=== PATIENT | female | born 1975 | race Caucasian/White ===

== ENCOUNTER 2017-03-07 07:10 | Day surgery (SDC) | payer BC ==
--- NOTE | ~2017-03-07 | EGD ---
EGD REPORT [facility] [address] [address] NAME: ALONDRA CARRILLO : [birth year] STATUS : REG [facility]#: [id number] AGE: 42 ADM/REG DATE : 03/07/17 MR#: [id number] REPORT SERV DATE: 03/07/17 DICTATED BY: URBAN ALMEIDA DATE: 03/07/17 REPORT STATUS : Draft TRANSCRIBED BY: [facility] DATE: 03/07/17 Endoscopy Center Patient Name: Alondra Carrillo Date of : 1975 Attending MD: URBAN ALMEIDA MD Procedure Date No Time: 03/07/2017 Procedure: Colonoscopy Indications: Iron deficiency anemia Referring MD: RIZWANA VILLEGAS Medicines: as per anesthesia Complications: No immediate complications. Procedure: Pre-Anesthesia Assessment: - ASA Grade Assessment: II - A patient with mild systemic disease. After I obtained informed consent, the scope was passed under direct vision. Throughout the procedure, the patient's blood pressure, pulse, and oxygen saturations were monitored continuously. The PCF [id number] was introduced through the anus and advanced to the cecum, identified by appendiceal orifice and ileocecal valve. The colonoscopy was somewhat difficult due to significant looping and a tortuous colon. The patient tolerated the procedure. The quality of the bowel preparation was adequate to identify polyps. Findings: The perianal and digital rectal examinations were normal. Internal hemorrhoids were found during endoscopy and were mild. Impression: - Internal hemorrhoids. Recommendation: - Repeat colonoscopy in 5 years for surveillance. Procedure Code(s): --- Professional --- 86811, Colonoscopy, flexible, proximal to splenic flexure; diagnostic, with or without collection of specimen(s) by brushing or washing, with or without colon decompression (separate procedure) Diagnosis Code(s): --- Professional --- K64.8, Other hemorrhoids D50.9, Iron deficiency anemia, unspecified CPT copyright 2013 [employer]. All rights reserved. EGD REPORT [facility] [address] [address] NAME: ALONDRA CARRILLO : [birth year] STATUS : REG [facility] [place] PAT#: [id number] AGE: 42 ADM/REG DATE : 03/07/17 MR#: [id number] REPORT SERV DATE: 03/07/17 DICTATED BY: URBAN ALMEIDA. DATE: 03/07/17 REPORT STATUS : Draft TRANSCRIBED BY: [employer] DATE: 03/07/17 The codes documented in this report are preliminary and upon relief mate review may be revised to meet current compliance requirements. URBAN ALMEIDA MD 03/07/2017 10:20 AM This report has been signed electronically. Number of Addenda: 0 Note Initiated On: 03/07/2017 9:28 AM Scope Withdrawal Time 0 hours 6 minutes 25 seconds [address] [id number]
--- NOTE | ~2017-03-07 | EGD ---
EGD REPORT [facility] [address] [address] NAME: ALONDRA CARRILLO : [birth year] STATUS : REG [facility]#: [id number] AGE: 42 ADM/REG DATE : 03/07/17 MR#: [id number] REPORT SERV DATE: 03/07/17 DICTATED BY: URBAN ALMEIDA DATE: 03/07/17 REPORT STATUS : Draft TRANSCRIBED BY: [facility] DATE: 03/07/17 Endoscopy Center Patient Name: Alondra Carrillo Date of : 1975 Attending MD: URBAN ALMEIDA MD Procedure Date No Time: 03/07/2017 Procedure: Upper GI endoscopy Indications: Iron deficiency anemia Referring MD: RIZWANA VILLEGAS Medicines: as per anesthesia Complications: No immediate complications. Procedure: Pre-Anesthesia Assessment: - ASA Grade Assessment: II - A patient with mild systemic disease. - ASA Grade Assessment: II - A patient with mild systemic disease. After obtaining informed consent, the endoscope was passed under direct vision. Throughout the procedure, the patient's blood pressure, pulse, and oxygen saturations were monitored continuously. The GIF H190 [id number] was introduced through the mouth, and advanced to the third part of duodenum. The upper GI endoscopy was accomplished without difficulty. The patient tolerated the procedure well. Findings: The examined esophagus was normal. The entire examined stomach was normal. The cardia and gastric fundus were normal on retroflexion. The examined duodenum was normal. Biopsies were taken with a cold forceps for histology. Impression: - Normal esophagus. - Normal stomach. - Normal examined duodenum. Biopsied. Recommendation: - Await pathology results. Procedure Code(s): --- Professional --- 57677, Esophagogastroduodenoscopy, flexible, transoral; with biopsy, single or multiple Diagnosis Code(s): --- Professional --- D50.9, Iron deficiency anemia, unspecified EGD REPORT [address] [address] NAME: ALONDRA CARRILLO : [birth year] [place]US : [place] [facility] [place]#: [id number] AGE: 42 ADM/REG DATE : 03/07/17 MR#: [id number] REPORT SERV DATE: 03/07/17 DICTATED BY: URBAN ALMEIDA. DATE: 03/07/17 REPORT STATUS : Draft TRANSCRIBED BY: [employer] DATE: 03/07/17 CPT copyright 2013 [employer]. All rights reserved. The codes documented in this report are preliminary and upon digital sales representative review may be revised to meet current compliance requirements. URBAN ALMEIDA MD 03/07/2017 9:49 AM This report has been signed electronically. Number of Addenda: 0 Note Initiated On: 03/07/2017 9:29 AM Scope Withdrawal Time 0 hours 0 minutes 0 seconds
[~2017-03-07 07:10] MED LIST: ADVIL PO; ALLERGY SHOTS; BEN25 PO; EXCEDRIN; Excedrin PO; MIRALAX POWDER1 PKT PO; NEXIUM20 M1 PO; NEXIUM40 PO; PROBIOTIC PO; VITAMIN D1000 UNI1 PO; ZYRTEC-D ALG PO
== END 2017-03-07 23:59 | disposition home health service (06) ==
LOC: DMU 07:10
PROVIDERS: Internal Medicine Gastroenterology
PROC: 0DB98ZX Excision of Duodenum, Via Natural or Artificial Opening Endoscopic, Diagnostic (ICD-10-PCS; principal; 2017-03-07 09:00)
PROC: 0DJD8ZZ Inspection of Lower Intestinal Tract, Via Natural or Artificial Opening Endoscopic (ICD-10-PCS; 2017-03-07 09:00)
DX: D50.9 Iron deficiency anemia, unspecified (principal); K64.8 Other hemorrhoids; K21.9 Gastro-esophageal reflux disease without esophagitis; Z90.710 Acquired absence of both cervix and uterus; Z98.890 Other specified postprocedural states
CPT/HCPCS: 88305